=== PATIENT | male | born 1960 ===

== ENCOUNTER 2017-12-30 14:18 | Emergency (ER) | payer MEDICAID, OTHER ==
[2017-12-30 14:56] VITALS: TEMP 98.8
--- NOTE | 2017-12-30 15:51 | C.PDOC ---
History Of Present Illness 57 yo male w/o significant PMHx come in for evaluation of slightly tender mass gradually developed for past 2 days over Left submandibular area. Pt sts," though its tooth abscess first but my teeth does not hurt". Pt reports, pain is slight, localized over Left submandibular area and " maybe little worse with chewing". Otherwise, pt denies fever, chills, recent illness, headache, dizziness, drooling, trismus, recent dental work, earache or discharges, vertigo , neck pain, cough, CP, SOB, abd. pain, N?V, denies nay other active complaints. Ambulate to ED for evaluation, not in any apparent distress. Time Seen by Provider: 12/30/17 15:31 Chief Complaint (Nursing): ENT Problem History Per: Patient Past Medical History Reviewed: Historical Data, Nursing Documentation, Vital Signs Vital Signs: Last Vital Signs Temp 98.8 F 12/30/17 14:54 Pulse 60 12/30/17 18:30 Resp 18 12/30/17 18:30 BP 148/84 12/30/17 18:30 Pulse Ox 98 12/30/17 18:49 - Medical History PMH: No Chronic Diseases Surgical History: No Surg Hx Family History: States: No Known Family Hx - Social History Hx Alcohol Use: No Hx Substance Use: No - Immunization History Hx Tetanus Toxoid Vaccination: No Hx Pneumococcal Vaccination: No Review Of Systems Except As Marked, All Systems Reviewed And Found Negative. Constitutional: Negative for: Fever, Chills, Malaise, Weight loss Eyes: Negative for: Vision Change, Redness ENT: Positive for: Mouth Pain, Mouth Swelling. Negative for: Ear Pain, Ear Discharge, Nose Pain, Nose Discharge, Nose Congestion, Throat Pain, Throat Swelling Cardiovascular: Negative for: Chest Pain Respiratory: Negative for: Cough, Shortness of Breath, Wheezing Gastrointestinal: Negative for: Nausea, Vomiting, Abdominal Pain, Diarrhea Genitourinary: Negative for: Incontinence Musculoskeletal: Negative for: Neck Pain Neurological: Negative for: Weakness, Numbness, Altered Mental Status, Headache , Dizziness Physical Exam - Physical Exam Appears: Well, Non-toxic, No Acute Distress Skin: Normal Color, Warm, Dry, No Rash Head: Normacephalic Eye(s): bilateral: PERRL Ear(s): Bilateral: Normal Nose: No Flaring, No Discharge, No Deformity, No Tenderness Oral Mucosa: Moist, No Drooling, No Trismus Tongue: Normal Appearing, No Swelling, No Lesions Lips: Normal Appearing, No Swelling, No Lesions Teeth: Normal Dentition, No Caries, No Dentures, No Tender To Palpation Gingiva: No Erythema, No Swelling, No Tender, No Abscess Throat: No Erythema, No Drooling Neck: Trachea Midline, Supple, Other ((-) meningeal sign) Lymphatic: Adenopathy (Left submandibular slightly tender mass 3 cm diameter) Cardiovascular: Rhythm Regular, No Murmur, No JVD Respiratory: No Decreased Breath Sounds, No Accessory Muscle Use, No Stridor, No Wheezing Gastrointestinal/Abdominal: Soft, No Tenderness, No Distention, No Guarding Extremity: Normal ROM, No Deformity, No Swelling Neurological/Psych: Oriented x3, Normal Speech ED Course And Treatment - Laboratory Results Result Diagrams: 12/30/17 15:48 12/30/17 15:48 Lab Interpretation: No Acute Changes O2 Sat by Pulse Oximetry: 98 Pulse Ox Interpretation: Normal - CT Scan/US CT neck soft tissue Other Rad Studies (CT/US): Radiology Report Reviewed CT/US Interpretation: IMPRESSION: 1. Enlarged cystic 2.1 x 1.6 cm submandibular lymph node at the site of clinically palpable lump. Left cervical chain lymphadenopathy. Also noted is 13.6 mm low density nodule in the left tonsil which could represent a peritonsillar abscess with suppurative lymphadenopathy. However neoplastic etiology cannot be entirely excluded. Please correlate with histopathology. Progress Note: Pt was OBS in Ed for 3 hours and reamined stable. On re- evaluation, pt is afebrile, hemodynamicaly stable. Non-toxic. Tolerate PO well in ED. Pt denies dysphagia or dyspnea. PulseOx 98% RA. Neck: Supple, (-) meningeal sign. ENT: no acute findings. uvul amidline, no edema. Lungs: CTA B/ L, BS equal B/L. CVS: (+)S1S2, reg. Abd: benign, (-) guarding, (-) rebound. Neuorlogicaly intact. Bood work review, no leukocytosis, no left shift. Imaging review likely peritonsillar abscess with lymphodenopathy. results review and discused with patient. SInce. pt is stable, no dyspnea or dysphagia , no trismus, pt is stable for discharge now. Pt advised. ref. to f/u with ENT in 1-2 days for re-eval. return to ED immediately if any worning or new changes. Pt agrees with discharges. Disposition Counseled Patient/Family Regarding: Studies Performed, Diagnosis, Need For Followup, Rx Given - Disposition Referrals: Brad Schrader MD [Staff Provider] - Disposition: HOME/ ROUTINE Disposition Time: 19:30 Condition: STABLE Additional Instructions: Encourage fluids Take medication as prescribed Follow up with ENT in 1-2 days for re-evaluation. return to ED if any worsening or new changes. Prescriptions: Clindamycin [Cleocin] 300 mg PO Q6 #28 cap Prednisone [Deltasone] 60 mg PO DAILY #9 tablet Instructions: Peritonsillar Abscess, Adult (DC) Forms: [facility] (Greenlandic) - Clinical Impression Clinical Impression: Peritonsillar abscess
[2017-12-30 15:53] LABS: BASO # 0.1 K/uL (0.0-0.2); BASO % 0.6 % (0.0-2.0); EOS # 0.1 K/uL (0.0-0.7); EOS % 0.9 % (0.0-4.0); HEMOGLOBIN 14.9 g/dL (12.0-18.0); LYMPH % 19.5 % (20.0-40.0); MEAN CELL VOLUME 81.4 fL (80.0-94.0); MEAN CORPUSCULAR HGB CONC 33.2 g/dL (33.0-37.0); MEAN PLATELET VOLUME 9.2 fL (7.2-11.7); MONO # 0.7 K/uL (0.0-0.8); MONO % 6.9 % (0.0-10.0); NEUT # 7.3 K/uL (1.8-7.0); NEUT % 72.1 % (50.0-75.0); NRBC % 0.1 % (0.0-2.0); RBC 5.51 Mil/uL (4.40-5.90); RED CELL DISTRIBUTION WIDTH 14.1 % (11.5-14.5); WHITE BLOOD COUNT 10.1 K/uL (4.8-10.8)
[2017-12-30 16:07] LABS: BLOOD UREA NITROGEN 12 mg/dL (9-20); CALCIUM 9.4 mg/dl (8.6-10.4); GFR AFRICAN-AMERICAN > 60; GFR NON-AFRICAN AMERICAN > 60
[2017-12-30] MEDS ORDERED: Iodixanol 320 MG/ML 100 ML BOTTLE IV ONE (17:56)
[2017-12-30 18:30] VITALS: BP 148/84; PULSE 60; RESP 18
--- NOTE | 2017-12-30 18:44 | CT ---
PROCEDURE: CT NECK WITH CONTRAST HISTORY: Left submandibular mass COMPARISON: None TECHNIQUE: CT of the neck with intravenous contrast. Coronal and sagittal reformats generated. Intravenous contrast dose: 100 cc Visipaque 320 Radiation dose: DLP 553.98 mGy-cm This CT exam was performed using one or more of the following dose reduction techniques: Automated exposure control, adjustment of the mA and/or kV according to patient size, and/or use of iterative reconstruction technique. FINDINGS: NASOPHARYNX: Within normal limits. SUPRAHYOID NECK: There is an apparent 13 x 6 mm low-density lesion in the left lingual tonsil. There is no bulky mass in the oropharynx, oral cavity. The parapharyngeal and retropharyngeal spaces are normal. INFRAHYOID NECK: There is no mass or abnormal enhancement in the larynx, hypopharynx, and supraglottic space. Vocal cords intact. MASS: None. GLANDS: The right submandibular gland is normal in size with homogeneous enhancement without focal mass. The left submandibular gland is normal in size without focal mass or sialoadenitis. Parotid glands are normal in size without focal mass. Normal size thyroid gland, there is a low-attenuation nodule in the left thyroid lobe. LYMPH NODES: At the site of clinically palpable lump, there is a 2.1 x 1.6 cm multilocular hyperdense nodule with mild surrounding fat stranding. There are asymmetrically enlarged left cervical chain lymph nodes including posterior triangle lymph nodes. CERVICAL SPINE: No fracture or focal lesion. Multilevel degenerative disc disease. VASCULAR STRUCTURES: Unremarkable. OTHER FINDINGS: There is mild paraseptal emphysema in the lung apices. IMPRESSION: 1. Enlarged cystic 2.1 x 1.6 cm submandibular lymph node at the site of clinically palpable lump. Left cervical chain lymphadenopathy. Also noted is 13.6 mm low density nodule in the left tonsil which could represent a peritonsillar abscess with suppurative lymphadenopathy. However neoplastic etiology cannot be entirely excluded. Please correlate with histopathology.
[2017-12-30] MEDS ORDERED: Sodium Chloride 0.9% 500 ML IV ONE (18:48)
[2017-12-30 18:49] VITALS: O2SAT 98
[2017-12-30] MEDS ORDERED: Clindamycin 600mg/50ml NS 600 MG/50 ML BAG IVPB ONE (19:13)
== END 2017-12-30 20:23 | disposition home or self-care (01) ==
LOC: C.ER 14:18
DX: J36 Peritonsillar abscess (principal); F17.210 Nicotine dependence, cigarettes, uncomplicated
CPT/HCPCS: 70491; 80048; 85025; 87070; 87430; 96365; 96375; 99283; J2930; J7040; Q9967

== ENCOUNTER 2018-01-06 12:37 | Emergency (ER) | payer MEDICAID, OTHER ==
[2018-01-06 15:31] LABS: BASO # 0.1 K/uL (0.0-0.2); BASO % 0.5 % (0.0-2.0); EOS % 0.1 % (0.0-4.0); LYMPH # 1.7 K/uL (1.0-4.3); LYMPH % 9.8 % (20.0-40.0); MEAN CELL VOLUME 79.9 fL (80.0-94.0); MEAN CORPUSCULAR HEMOGLOBIN 26.7 pg (27.0-31.0); MEAN CORPUSCULAR HGB CONC 33.5 g/dL (33.0-37.0); MEAN PLATELET VOLUME 8.4 fL (7.2-11.7); MONO # 1.8 K/uL (0.0-0.8); MONO % 10.5 % (0.0-10.0); NEUT # 13.4 K/uL (1.8-7.0); NEUT % 79.1 % (50.0-75.0); PLATELET COUNT 271 K/uL (130-400); RED CELL DISTRIBUTION WIDTH 14.1 % (11.5-14.5)
[2018-01-06 15:40] LABS: INR 1.4; PROTHROMBIN TIME 15.8 SECONDS (9.7-12.2)
[2018-01-06 15:48] LABS: BANDS 1 % (0-2); LYMPHOCYTE 13 % (20-40); MONOCYTE 8 % (0-10); NEUTROPHIL 78 % (50-75); PLATELET ESTIMATE NORMAL (NORMAL); TOTAL CELLS COUNTED 100
[2018-01-06 16:05] LABS: BLOOD UREA NITROGEN 15 mg/dL (9-20); CALCIUM 9.3 mg/dl (8.6-10.4); GFR AFRICAN-AMERICAN > 60; GFR NON-AFRICAN AMERICAN > 60
[2018-01-06] MEDS ORDERED: Iodixanol 320 MG/ML 100 ML BOTTLE IV ONE (16:16)
--- NOTE | 2018-01-06 16:39 | C.PDOC ---
History Of Present Illness 57 yo male referred to ED by for re-evaluation of Left lateral neck mass pt gradually developed for past 2 weeks. Pt reports, was seen here in ED [address] of neck soft tissue performed with non conclusive results mass vs acute peritonsilar abscess. Pt sts, complete course of abx without significant improvement. Pt admits, for past week developed weakness, fatigue, low grade fever. Otherwise, pt denies high fever, headache, dizziness, known trauma or injury, drooling, trismus, earaches, vertigo, cough, CP, SOB, dyspnea , palpitation, abd. pain, N/V, denies nay other active complaints. Ambulate to ED, not in resp. distress. Time Seen by Provider: 01/06/18 15:01 Chief Complaint (Nursing): ENT Problem History Per: Patient Past Medical History Reviewed: Historical Data, Nursing Documentation, Vital Signs Vital Signs: Last Vital Signs Temp 102.8 F H 01/06/18 17:54 Pulse 99 H 01/06/18 17:54 Resp 16 01/06/18 17:54 BP 122/76 01/06/18 17:54 Pulse Ox 95 01/06/18 17:54 - Medical History PMH: No Chronic Diseases Surgical History: No Surg Hx Family History: States: No Known Family Hx - Social History Hx Tobacco Use: No Hx Alcohol Use: No Hx Substance Use: No - Immunization History Hx Tetanus Toxoid Vaccination: No Hx Pneumococcal Vaccination: No Review Of Systems Except As Marked, All Systems Reviewed And Found Negative. Constitutional: Positive for: Fever (low grade), Malaise. Negative for: Chills Eyes: Negative for: Vision Change ENT: Positive for: Mouth Pain, Throat Pain. Negative for: Ear Pain, Ear Discharge, Nose Discharge Cardiovascular: Negative for: Chest Pain, Palpitations, Edema, Light Headedness Respiratory: Negative for: Cough, Shortness of Breath, Wheezing Gastrointestinal: Negative for: Nausea, Vomiting, Abdominal Pain Genitourinary: Negative for: Incontinence Musculoskeletal: Positive for: Neck Pain. Negative for: Back Pain Skin: Positive for: Other (Left sided neck mass) Neurological: Negative for: Weakness, Numbness, Altered Mental Status, Headache , Dizziness Physical Exam - Physical Exam Appears: Well, Non-toxic, No Acute Distress Skin: Normal Color, Warm, Dry, No Rash Head: Normacephalic Eye(s): bilateral: PERRL Ear(s): Bilateral: Normal Nose: No Flaring, No Discharge, No Deformity, No Tenderness Oral Mucosa: Moist, No Drooling, No Trismus Tongue: Normal Appearing Lips: Normal Appearing Throat: No Erythema, No Drooling, Other (Uvula midline, no edema.) Neck: Trachea Midline, No Midline Cervical Tenderness, No Paracervical Tenderness, No Step Off Deformity, Supple, Other (Left submandibular tender solid mass 5#6 cm, diffuse erythema extends down to anterior chest. No flactulance.) Lymphatic: Adenopathy (Left submandibular mass) Cardiovascular: Rhythm Regular, No Murmur, No JVD Respiratory: No Decreased Breath Sounds, No Accessory Muscle Use, No Stridor, No Wheezing Gastrointestinal/Abdominal: Soft, No Tenderness, No Distention, No Guarding Extremity: Normal ROM, No Pedal Edema, No Deformity Neurological/Psych: Oriented x3, Normal Speech, Normal Motor, Normal Sensation, Normal Reflexes ED Course And Treatment - Laboratory Results Result Diagrams: 01/06/18 15:28 01/06/18 15:28 Lab Interpretation: Abnormal O2 Sat by Pulse Oximetry: 96 Pulse Ox Interpretation: Normal - CT Scan/US CT neck soft tissue w/IV contrast Other Rad Studies (CT/US): Radiology Report Reviewed CT/US Interpretation: FINDINGS: NASOPHARYNX: Unremarkable. SUPRAHYOID NECK: Unremarkable oropharynx, oral cavity, parapharyngeal space and retropharyngeal space. INFRAHYOID NECK: Unremarkable larynx, hypopharynx, and supraglottic space. Vocal cords intact. MASS: Enlarging left submandibular mass currently measuring 3.5 x 4.4 by 4.2 cm. On the prior study the mass measured 1.7 x 2.1 x 1.8 cm. At its widest diameter of the mass Is interposed between the left submandibular gland and left mandible. There is a clear tissue plane between the left submandibular gland posteriorly in the mass. Cutaneous and subcutaneous edema identified. At a more caudal level the mass displays contiguity with the sternocleidomastoid gland. The contents of the more posterior carotid sheath are unaffected. GLANDS: Parotid and submandibular glands unremarkable. Normal size thyroid gland, without nodule. LYMPH NODES: Small lymph nodes retromolar trigone region interposed between the mass and sternocleidomastoid. This likely represents stable reactive lymphadenopathy. CERVICAL SPINE: No fracture or focal lesion. VASCULAR STRUCTURES: Unremarkable. OTHER FINDINGS: None. IMPRESSION: Marked increase in size of cystic submandibular mass. Peripheral contrast-enhancing rim and central areas of necrosis of multiple septa identified. Previously identified tonsillar mass now measures less than 7 mm. Progress Note: Case discussed with ENT who cleared patient from his service, recommend transfer with available max/face and dental service. was paged at 17:19, no answer. At 18:20, case dsicussed with Max/ Face resident from [facility] who recommend transfer to ED for evaluation. Case discussed with [facility] ED attending and transfer accepted. Results review and dsicussed with pateint. Pt agree swith plan of transfer. At present time, pt appears comforatble, not in resp. distress. Jorje drooling or stridor. PulseOx 95 % RA. Lungs: CTA B/L, BS equal B/L. Pt is stable for transfer now. Disposition - Disposition Disposition: Trans to Other Acute Care Hosp Disposition Time: 18:23 Condition: STABLE Forms: [facility] (Turkish) - Clinical Impression Clinical Impression: Mass of submandibular region
--- NOTE | 2018-01-06 17:10 | CT ---
PROCEDURE: CT NECK WITH CONTRAST HISTORY: Left neck mass COMPARISON: 12/30/2017. CT neck TECHNIQUE: CT of the neck with intravenous contrast. Coronal and sagittal reformats generated. Intravenous contrast dose: 100 cc Visipaque 320 Radiation dose: DLP 534.56 mGy-cm This CT exam was performed using one or more of the following dose reduction techniques: Automated exposure control, adjustment of the mA and/or kV according to patient size, and/or use of iterative reconstruction technique. FINDINGS: NASOPHARYNX: Unremarkable. SUPRAHYOID NECK: Unremarkable oropharynx, oral cavity, parapharyngeal space and retropharyngeal space. INFRAHYOID NECK: Unremarkable larynx, hypopharynx, and supraglottic space. Vocal cords intact. MASS: Enlarging left submandibular mass currently measuring 3.5 x 4.4 by 4.2 cm. On the prior study the mass measured 1.7 x 2.1 x 1.8 cm. At its widest diameter of the mass Is interposed between the left submandibular gland and left mandible. There is a clear tissue plane between the left submandibular gland posteriorly in the mass. Cutaneous and subcutaneous edema identified. At a more caudal level the mass displays contiguity with the sternocleidomastoid gland. The contents of the more posterior carotid sheath are unaffected. GLANDS: Parotid and submandibular glands unremarkable. Normal size thyroid gland, without nodule. LYMPH NODES: Small lymph nodes retromolar trigone region interposed between the mass and sternocleidomastoid. This likely represents stable reactive lymphadenopathy. CERVICAL SPINE: No fracture or focal lesion. VASCULAR STRUCTURES: Unremarkable. OTHER FINDINGS: None. IMPRESSION: Marked increase in size of cystic submandibular mass. Peripheral contrast-enhancing rim and central areas of necrosis of multiple septa identified. Previously identified tonsillar mass now measures less than 7 mm.
[2018-01-06 20:12] VITALS: BP 107/76; PULSE 84; RESP 20; TEMP 100.8; O2SAT 98
== END 2018-01-06 20:44 | disposition short-term general hospital (02) ==
LOC: C.ER 12:37
DX: R22.1 Localized swelling, mass and lump, neck (principal)
CPT/HCPCS: 70491; 80048; 85025; 85610; 85730; 87040; 99284; Q9967